=== PATIENT | male | born 1990 ===

== ENCOUNTER 2021-10-17 18:04 | Inpatient (IN) | payer OTHER ==
[~2021-10-17] VITALS: Ht 180.3 cm; Wt 77.4 kg
[2021-10-17 19:29] LABS: BASOPHILS ABSOLUTE AUTO 0.22 K/mm3 (0.00-0.23); BASOPHILS PERCENT AUTO 1 % (0-2); EOSINOPHILS ABSOLUTE AUTO 1.66 K/mm3 (0.00-0.68); EOSINOPHILS PERCENT AUTO 9 % (0-6); Hematocrit 48.6 % (37.0-53.0); IMMATURE GRAN ABSOLUTE AUTO 0.07 K/mm3 (0.00-0.10); IMMATURE GRAN PERCENT AUTO 0 % (0-1); LYMPHOCYTES ABSOLUTE AUTO 4.24 K/mm3 (0.84-5.20); LYMPHOCYTES PERCENT AUTO 24 % (21-46); MONOCYTES ABSOLUTE AUTO 1.46 K/mm3 (0.16-1.47); MONOCYTES PERCENT AUTO 8 % (4-13); Mean Corpuscular HGB 30.6 pg (26.0-34.0); Mean Corpuscular HGB Conc 32.9 g/dL (31.5-36.5); Mean Corpuscular Volume 93 fL (80-100); Mean Platelet Volume 10.2 fL (9.1-12.4); NEUTROPHILS ABSOLUTE AUTO 9.94 K/mm3 (1.96-9.15); NEUTROPHILS PERCENT AUTO 57 % (41-73); Platelet Count 369 K/mm3 (150-400); RDW Coefficient Variation 13.2 % (11.7-14.2); RDW Standard Deviation 45.2 fL (35.1-46.3); Red Blood Cell Count 5.23 M/mm3 (4.30-5.90); White Blood Cell Count 17.59 K/mm3 (4.00-11.30)
[2021-10-17 19:42] LABS: Albumin, Blood 3.9 g/dL (3.4-5.0); Albumin/Globulin Ratio 1.1 (0.8-1.8); Bilirubin, Total 0.3 mg/dL (0.1-1.0); Bun/Creatinine Ratio 14.4 (12.0-20.0); Calcium, Blood 8.3 mg/dL (8.5-10.1); Creatinine, Blood 0.83 mg/dL (0.60-1.20); Globulin, Blood 3.4 g/dL (2.2-4.0); Total Protein, Blood 7.3 g/dL (6.4-8.2)
[2021-10-17 19:52] LABS: PO2 Arterial 484 mmHg (80-100)
[2021-10-17 19:54] LABS: PCO2 Arterial 73 mmHg (35-45); pH Blood Arterial 7.16 (7.35-7.45)
--- NOTE | 2021-10-17 22:00 | NUR ---
EMERGENCY CONTACT PT'S PHONE REVIEWED WITH JOB LITHOGRAPHER GRACE MEDINA, IN CASE OF EMERGENCY MEDICAL INFORMATION IS NOT ENTERED, EMERGENCY CONTACTS IN PHONE ARE LISTED "MOTHER" [phone], "RAGHAVENDRA" [phone], AND "JIM" [phone] UNABLE TO OBTAIN MEDICAL HISTORY FROM PT DUE TO INTUBATION, DISCUSSED WITH VENUE COORDINATOR JUANJO ROBERTO REGARDING PT'S EMERGENCY PHONE CONTACTS, CALL IS PLACED TO NUMBER SAVED "MOTHER" IN PT'S PHONE BUT WENT TO VOICEMAIL, MESSAGE LEFT TO PLEASE RETURN CALL TO [facility] IN [facility] AT [phone].
[2021-10-17 22:02] LABS: Influenza A, PCR NEGATIVE (NEGATIVE); Influenza B, PCR NEGATIVE (NEGATIVE); Resp Syncytial Virus, PCR NEGATIVE (NEGATIVE); SARS-Cov-2 (COVID-19) PCR, MMC NEGATIVE (NEGATIVE)
[2021-10-17] MEDS ORDERED: ALBU90OI (22:46)
[2021-10-18 00:15] LABS: Source, Urine Foley catheter
[2021-10-18 00:29] LABS: U Amphetamine Screen Not Detected; U Barbituate Screen Not Detected; U Benzodiazapine Screen Not Detected; U Buprenorphine Screen Not Detected; U Cannabinoids Screen DETECTED; U Cocaine Screen DETECTED; U Methadone Screen Not Detected; U Methamphetamine Screen Not Detected; U Opiates Screen Not Detected; U Oxycodone Screen Not Detected; U Phencyclidine Screen Not Detected; U Propoxyphene Screen Not Detected
[2021-10-18 00:31] LABS: Bilirubin, Urine Neg (Neg); Blood, Urine 5+ (Neg); Color, Urine Brown (P-Yellow); Glucose Qualitative, Urine Neg (Neg); Ketones, Urine 1+ (Neg); Leukocyte Esterase, Urine 1+ (Neg); Nitrite, Urine Neg (Neg); Protein, Urine 3+ (Neg); Urobilinogen, Urine NORM (Normal)
[2021-10-18 00:32] LABS: Amorphous Heavy (0-Heavy); Appearance, Urine Turbid (Clear); Bacteria Few /hpf; Red Blood Cells, Urine TNTC /hpf (0-2); Squamous Epithelial Cells Not Seen /hpf (Few)
[2021-10-18 03:38] LABS: BASOPHILS ABSOLUTE AUTO 0.02 K/mm3 (0.00-0.23); BASOPHILS PERCENT AUTO 0 % (0-2); EOSINOPHILS ABSOLUTE AUTO 0.01 K/mm3 (0.00-0.68); EOSINOPHILS PERCENT AUTO 0 % (0-6); Hematocrit 42.4 % (37.0-53.0); Hemoglobin 14.4 g/dL (13.5-17.5); IMMATURE GRAN ABSOLUTE AUTO 0.04 K/mm3 (0.00-0.10); IMMATURE GRAN PERCENT AUTO 0 % (0-1); LYMPHOCYTES ABSOLUTE AUTO 0.28 K/mm3 (0.84-5.20); LYMPHOCYTES PERCENT AUTO 2 % (21-46); MONOCYTES ABSOLUTE AUTO 0.07 K/mm3 (0.16-1.47); MONOCYTES PERCENT AUTO 1 % (4-13); Mean Corpuscular HGB 30.6 pg (26.0-34.0); Mean Corpuscular Volume 90 fL (80-100); Mean Platelet Volume 10.2 fL (9.1-12.4); NEUTROPHILS ABSOLUTE AUTO 12.32 K/mm3 (1.96-9.15); NEUTROPHILS PERCENT AUTO 97 % (41-73); Platelet Count 256 K/mm3 (150-400); RDW Coefficient Variation 13.4 % (11.7-14.2); RDW Standard Deviation 44.3 fL (35.1-46.3); Red Blood Cell Count 4.71 M/mm3 (4.30-5.90); White Blood Cell Count 12.74 K/mm3 (4.00-11.30)
[2021-10-18 03:51] LABS: PCO2 Arterial 36.4 mmHg (35-45); PO2 Arterial 78.3 mmHg (80-100)
[2021-10-18 03:56] LABS: Albumin, Blood 3.5 g/dL (3.4-5.0); Albumin/Globulin Ratio 1.1 (0.8-1.8); Bilirubin, Total 0.5 mg/dL (0.1-1.0); Bun/Creatinine Ratio 14.6 (12.0-20.0); Calcium, Blood 8.4 mg/dL (8.5-10.1); Creatinine, Blood 0.75 mg/dL (0.60-1.20); Globulin, Blood 3.2 g/dL (2.2-4.0); Magnesium, Blood 1.8 mg/dL (1.6-2.4); Total Protein, Blood 6.7 g/dL (6.4-8.2)
--- NOTE | 2021-10-18 04:12 | NUR ---
FAMILY UPDATE CONTACT LISTED IN PT'S PHONE "MOTHER" RETURNED CALL AT THIS TIME, SHE STATES THAT SHE LIVES IN [place]. SHE DOES NOT BELIEVE THAT HE IS ALLERGIC TO ANYTHING OTHER THAN WHEAT, SHE REPORTS HIS ONLY MEDICAL HISTORY OTHER THAN ASTHMA KIDNEY STONES, SHE STATES THAT HE HAS NOT HAD ANY SURGERIES TO HER KNOWLEDGE, SHE DOES STATE THAT SPIRITUAL CARE IS IMPORTANT TO THE PT AND THAT HE WOULD PROBABLY LIKE A VISIT FROM SPIRITUAL CARE. HER NAME IS LEXIE, NUMBER FROM PT'S PHONE IS [phone]
--- NOTE | 2021-10-18 05:58 | NUR ---
PT REMAINS SEDATED AND INTUBATED, VENT SETTINGS WERE CHANGED BY RT FROM PRESSURE CONTROL TO AC/VC 10/470/50/30% AND WAS REVIEWED WITH DR ROBB AT THE TIME CHANGES WERE MADE. PT HAS TOLERATED WELL, LUNGS WERE DIMINISHED ON ARRIVAL TO ICU BUT HAVE IMPROVED TO CLEAR THROUGHOUT, SATS ARE LOW TO MID 90S AND RESP RATE IS LOW 20S WITH TIDAL VOLUMES LOW TO MID 500S. PT REMAINS TACHYCARDIC HOWEVER RATE HAS IMPROVED FROM 130S TO 120S, PRESSURES HAVE MAINTAINED, PULSES REMAIN FULL X 4 EXTREMITIES, SKIN PWD, TEMP IS NOTED TO HAVE INCREASED TO 100.2 OF THIS TIME, CALL WAS PLACED TO HOSPITALIST GROUND OPERATIONS SUPERINTENDENT REGARDING UA OBTAINED AFTER BALL PLACEMENT AND ROCEPHIN WAS ORDERED AND ADMINISTERED. PROPOFOL HAS BEEN TITRATED SLOWLY DOWN LOW 55 MCG/KG/MIN HOWEVER PT WAS NOTED TO BECOME QUITE AGITATED, COUGHING, GAGGING, AND SITTING UP/LEANING OVER BED RAIL AND HAS SINCE REQUIRED TITRATED BACK UP TO 75 MCG/KG/MIN, HE DID REQUIRE INTERMITTENT FENTANYL AND ATIVAN ADMINISTRATION AND TOLERATED WELL. OG IS IN PLACE TO LOW INTERMITTENT SUCTION, PRODUCTIVE OF CLEAR/BROWN GASTRIC CONTENTS, BOWEL TONES ARE HYPOACTIVE THROUGHOUT, ABD IS SOFT, NO GRIMACING NOTED WITH LIGHT PALPATION. TEMP PROBE BALL IN PLACE ON ARRIVAL FROM ER AND URINE WAS SENT PER PROTOCOL, LOW URINE OUTPUT WAS NOTED POST IVF BOLUS AND BLADDER SCAN WAS DONE SHOWING 181 ML OF URINE, NS 20 ML FLUSH WAS DONE USING SIDE PORT WITH DRAINAGE TUBING CLAMPED AND BALL DRAINED 270 ML OF TEA COLORED URINE WITH SEDIMENT WHICH CLEARED TO DARK STEVE URINE OF THIS TIME.
--- NOTE | 2021-10-18 06:51 | NUR ---
CALL RECEIVED FROM PT'S FATHER, NAME CATHLEEN, NUMBER [phone], STATES THAT HE IS ABLE TO GET UPDATES FROM LEXIE VIA PT'S BROTHER "RAGHAVENDRA"
--- NOTE | 2021-10-18 08:06 | NUR ---
AM NOTE... ASSUMED CARE OF PT AT 0700, THE PT IS INTUBATED AND SEDATED ON PROPOFOL AT 70MCG/KG, THE PT BECOMES AGITATED WITH ANY TYPE OF CARE OR PT REPOSITIOING. THE PT'S VENT SETTINGS ARE AC/VC+:10/470/5/30% WITH O2 SATS >90% L/S CLEAR T/O NO WHEEZES NOTED ON THIS ASSESSMENT. OG TUBE IS SET TO LIS BUT CLAMPED TO GIVE AM MEDS. BT PRESENT AND HYPERACTIVE, ABD IS SOFT AND NONTENDER TO PALPATION. THE PT IS IN SINUS TACH IN THE 120'S, BP IS SOFT BUT STABLE WITH MAPS >65 NO EDEMA IS NOTED ON ASSESSMENT. BALL IS PATENT AND DRAINING TO GRAVITY. WILL CONTINUE TO MONITOR.
--- NOTE | 2021-10-18 14:06 | NUR ---
PT UPDATE.... PT'S TUBE FEEDS WERE STARTED AT 1400, RATE WAS STARTED AT 25MLS/HR.
--- NOTE | 2021-10-18 14:25 | NUR ---
PT UPDATE... AT 1415 THE PT WOKE UP AND SAT FORWARD AND GRABBED HIS ET TUBE IN AN ATTEMPT TO SELF EXTUBATE. THE PT'S WRISTS WERE RESTRAINED WELL HOWEVER THE PT IS VERY STRONG AND FLEXABLE. THERE IS NO CHANGE TO THE PLACEMENT OF THE ET TUBE IT CONTINUES TO BE 25 AT THE TEETH. THE PT'S PROPOFOL WAS INCREASED BACK TO 70MCG/KG AND HE WAS GIVEN 1MG IV ATIVAN. THIS WORKED WELL TO RESEDATE THE PT. WILL CONTINUE TO MONITOR.
--- NOTE | 2021-10-18 17:10 | NUR ---
SHIFT SUMMARY... STARTING AT 1630 THE PT'S BPs STARTED TO TREND DOWN WITH MAPS <60, PROVIDER WAS NOTIFIED AND ORDERS WERE OBTAINED FOR 1 BOLUS OF LR AND IF BPs HAVE NOT IMPROVED AFTER THE BOLUS THEN TO START LEVOPHED. THE PT'S OTHER VS HAVE BEEN STABLE THE PT'S HR HAS IMPROVED TO SR IN THE 90'S. THE PT'S VENT SETTINGS WERE CHANGED TO PRESSURE SUPPORT OF 8/5 AND 30% WITH O2 SATS >90% L/S HAVE INCREASED WHEEZES T/O BUT MORE SO ON THE LEFT THAN THE RIGHT. THE PT'S TUBE FEEDS ARE RUNNING AT 25MLS/HR WITH A GOAL OF 45MLS/HR. THE PT'S BALL IS PATENT AND DRAINING STEVE URINE WITH BROWN SEDIMENT TO GRAVITY. THE PT HAS NOT HAD A BM THIS SHIFT. THE PT'S MOTHER LEXIE WHO IS HIS NEXT OF KIN HAS BEEN UPDATED SEVERAL TIMES T/O THIS SHIFT. WILL CONTINUE TO MONITOR UNTIL REPORT IS GIVEN TO ONCOMING RN.
--- NOTE | 2021-10-18 19:47 | NUR ---
ASSUMED CARE OF PT, BEDSIDE REPORT RECEIVED. PT IS NOTED ON SPONTANEOUS/PRESSURE SUPPORT ON VENTILATOR 8/5 FIO2 30% CURRENT TIDAL VOLUMES ARE HIGH 400S TO 500S, RATE IS HIGH TEENS LOW 20S AT THIS TIME, LUNGS ARE CLEAR BUT DIM THROUGHOUT, RT AT BEDSIDE FOR UDN, ETCO2 CIRCUIT REPLACED BY RT SECONDARY TO LACK OF WAVEFORM, ETCO2 IS 33-36 AT THIS TIME, SATS MAINTAINING MID TO UPPER 90S. CONTINUES IN SINUS RHYTHM, RATE NOTED IMPROVED FROM THIS AM AT SHIFT CHANGE, CURRENTLY HIGH 90S, PRESSURES ARE REPORTED TO HAVE BEEN SOFT FOR A DURATION TODAY HOWEVER HAVE IMPROVED FOLLOWING LR BOLUS, PULSES CONTINUE FULL, SKIN REMAINS PWD, NO EDEMA NOTED. ACTIVE BOWEL TONES X 4, SOFT, NO GRIMACING WITH PALPATION, TUBE FEEDING STARTED AT 1400 TODAY, VITAL HIGH PROTEIN TO OG TUBE AT 25 ML/HR WITH 30 ML WATER EVERY 4 HOURS FOR FLUSH, CURRENT RESIDUAL IS 20 ML, WILL MONITOR. TEMP PROBE BALL REMAINS IN PLACE URINE IN TUBING IS CLEAR YELLOW WITH FLECKS OF DARK RED/BROWN SEDIMENT. EXTENDED DWELL IV IS NOW NOTED TO RIGHT UPPER ARM, DRESSING CDI, INFUSING PROPOFOL AT 70 MCG/KG/MIN AT THIS TIME. BILAT AC IV ACCESS CONTINUES AND ARE SALINE LOCKED. PT DOES NOT FOLLOW COMMANDS AT THIS TIME BUT IS NOTED TO GRIMACE, SIT UP AND REACH FOR ETT, AND TURN HEAD SIDE TO SIDE FOLLOWING NOXIOUS STIMULI, REASSURANCE PROVIDED REGARDING PT SAFETY, WRIST RESTRAINT PURPOSE, PLAN OF CARE FOR THIS SHIFT ARE PROVIDED TO PT, IMPROVEMENT IN RESTLESSNESS IS NOTED HOWEVER PT CONTINUES WITH GRIMACE, COUGH, AND INCREASED MUSCLE TENSION, FENTANYL 50 MCG IV ADMINISTERED PER ORDERS. WILL MONITOR.
--- NOTE | 2021-10-18 21:19 | NUR ---
PT UPDATE SPOKE WITH DR ZAVALA REGARDING PT'S PRESSURES, PROPOFOL RATE, AND SEDATION. ORDERS OBTAINED FOR PRECEDEX GTT. PLAN IS TO TITRATE PROPOFOL DOWN AND MAINTAIN SEDATION WITH PRECEDEX. IF PRESSURES DON'T IMPROVE WITH THESE INTERVENTIONS, THEN WILL START LEVOPHED PERIPHERALLY.
--- NOTE | 2021-10-18 22:02 | NUR ---
TUBE FEEDING RATE INCREASED TO 35 ML/HR, WILL CONT TO MONITOR.
--- NOTE | 2021-10-18 22:17 | NUR ---
SEDATION UPDATE PT IS NOTED WITH INCREASED GRIMACING AND GAGGING WITH SLIGHT REPOSITIONING, OPENS EYES WHEN INSTRUCTED, FOLLOWS INSTRUCTIONS AT THIS TIME BUT DOES NOT ANSWER YES/NO QUESTIONS. WILL CONT TO MONITOR.
[2021-10-19 03:45] LABS: Hematocrit 41.1 % (37.0-53.0); Hemoglobin 13.7 g/dL (13.5-17.5); Mean Corpuscular HGB 30.6 pg (26.0-34.0); Mean Corpuscular HGB Conc 33.3 g/dL (31.5-36.5); Mean Corpuscular Volume 92 fL (80-100); Mean Platelet Volume 10.6 fL (9.1-12.4); Platelet Count 238 K/mm3 (150-400); RDW Coefficient Variation 13.8 % (11.7-14.2); RDW Standard Deviation 46.9 fL (35.1-46.3); Red Blood Cell Count 4.48 M/mm3 (4.30-5.90); White Blood Cell Count 11.45 K/mm3 (4.00-11.30)
[2021-10-19 04:02] LABS: Bun/Creatinine Ratio 13.8 (12.0-20.0); Calcium, Blood 8.5 mg/dL (8.5-10.1); Creatinine, Blood 0.8 mg/dL (0.60-1.20); Potassium, Blood 4.4 mmol/L (3.5-5.5)
--- NOTE | 2021-10-19 07:22 | NUR ---
PT RESTS QUIETLY THROUGHOUT SHIFT, MENTATION WAS NOTED TO IMPROVE TO FOLLOWING COMMANDS AND BEING CALM/COOPERATIVE WITH CARE AND INCREASES IN STIMULATION. PRECEDEX WAS ADDED AND PROPOFOL WAS TITRATED DOWN TO STANDBY FOR A SHORT DURATION. PT DID C/O PAIN TO THROAT AND NODDED YES WHEN ASKED IF HE WOULD LIKE PAIN MEDICATION FOR WHICH FENTANYL WAS ADMINISTERED. RESP RATE WAS THEN NOTED TO DECREASE TO LESS THAN 10/MIN, VENTILATOR WAS RETURNED TO AC/VC MODE BY RT AND PT TOLERATED WELL, AT THAT TIME PROPOFOL WAS RESTARTED INFUSING AT 25 MCG/KG/MIN AND PT WAS NOTED TO APPEAR TO SLEEP, ROUSED EASILY TO VERBAL STIMULI AND CONTINUED TO FOLLOW COMMANDS AND ANSWER YES/NO QUESTIONS. PRESSURES WERE NOTED TO IMPROVE WITH DECREASE IN PROPOFOL RATE. TUBE FEEDING RATE WAS INCREASED TO 35 ML/HR AT 2200, MIDNOC RESIDUAL INCREASED TO 40 ML HOWEVER 0400 RESIDUAL WAS 400 ML 200 OF WHICH WAS REINSTILLED AND TUBE FEEDING WAS PLACED TO STANDBY FOR 2 HOURS AND RESTARTED AT 15 ML/HR. URINE COLOR HAS IMPROVED, GOOD OUTPUT IN BALL THIS SHIFT.
--- NOTE | 2021-10-19 07:37 | NUR ---
PT ON VENTILATOR, SPNT 8, FIO2 30%, PEEP 5. RESP RATE 12-13, SATS 92%. PT ON PROPOFOL 40MCG/KG, PRECEDEX @ 0.6MCG/KG, PT WITH SIZE 2 PUPILS, REACTIVE, NO EYELASH REFLEX, PROPOFOL DECREASED TO 30MCG/KG. OG WITH VHP @ 15ML/HR, BOWEL SOUNDS QUIET, BALL TO GRAVITY DRAINAGE WITH YELLOW IN TUBING WITH FLECKS OF RED, SKIN DIAPHORETIC, LUNGS CLEAR WITH SMALL SQUEAK ON INSP IN ANTERIOR. WILL REASSESS PROPOFOL LESSENS.
--- NOTE | 2021-10-19 09:20 | NUR ---
SPOKE TO PATIENT, NODDED HEAD IN UNDERSTANDING.
--- NOTE | 2021-10-19 09:57 | NUR ---
0947, PT AWAKENS TO VOICE, FOLLOWS COMMANDS, RONNI R/T SUCTIONS AND PT IS EXTUBATED TO ROOM AIR. GOOD MOIST COUGH, SATS HANGING IN THE HI 80'S, AFTER A FEW MOMENTS PLACED ON 2L/NC WITH SATS TO 91%. PT STILL A BIT SLEEPY, WAKES UP TO VOICE, SAYS HE "FEELS BETTER". RESTRAINTS DC'D.
--- NOTE | 2021-10-19 14:57 | NUR ---
MAKAYLA WAS UP TO THE SHOWER, SPENT A GOOD DEAL OF TIME IN THERE. HE SAID IT FELT GREAT AND SO DOES HE. HE RETURNS TO HIS ROOM, TO THE RECLINER, THEN A BREATHING TREATMENT FOR HIS WHEEZING. HE DENIES ANY COMPLAINTS AT THIS TIME.
--- NOTE | 2021-10-19 15:57 | NUR ---
PT HAS BEEN UP AND AMBULATING IN THE ROOM, SPOT CHECK OF SPO2, 94% ON ROOM AIR. REPORT GIVEN TO NURSE ON MEDICAL FLOOR. PT AMBULATING WITH [facility].
--- NOTE | 2021-10-19 16:36 | NUR ---
TRANSFER FROM ICU 1545: RECEIVED REPORT FROM REYNALDO GROUT MACHINE TENDER. 1605: RECEIVED PT TO [facility] FLOOR, ROOM 355. PLACED IN BED MADE COMFORTABLE, ORIENTED TO ROOM & UNIT ROUTINE. VSS. PT A&O X 4. DOCUMENT ANALYST WILL WALK PT TO HIS VEHICLE SO HE CAN GET HIS WORK LAPTOP. PT SATTING WELL ON RA. PT WITH NO COMPLAINTS AT THIS TIME.
--- NOTE | 2021-10-19 18:31 | NUR ---
SHIFT SUMMARY PT A&O X 4. VSS. PT REQUESTED A BEER WITH DINNER, IS USED TO DRINKING A 6 PK A DAY AND HE REQUESTED A NICOTINE PATCH, IS USED TO SMOKING A PK A DAY. PLACED CALL TO DR. LOMBARDI AND ORDERS RECEIVED. PT DENIES DYSPNEA AND BREATHING IS EVEN & UNLABORED. ON RA AND SATTING >90%. IS INDEPENDENT IN THE ROOM. GAIT STRONG & STEADY. PLAN IS FOR DC HOME TOMORROW.
[2021-10-20 05:17] LABS: BASOPHILS ABSOLUTE AUTO 0.01 K/mm3 (0.00-0.23); BASOPHILS PERCENT AUTO 0 % (0-2); EOSINOPHILS PERCENT AUTO 0 % (0-6); Hematocrit 42.6 % (37.0-53.0); Hemoglobin 13.8 g/dL (13.5-17.5); IMMATURE GRAN ABSOLUTE AUTO 0.04 K/mm3 (0.00-0.10); IMMATURE GRAN PERCENT AUTO 0 % (0-1); LYMPHOCYTES ABSOLUTE AUTO 0.71 K/mm3 (0.84-5.20); LYMPHOCYTES PERCENT AUTO 8 % (21-46); MONOCYTES PERCENT AUTO 7 % (4-13); Mean Corpuscular HGB Conc 32.4 g/dL (31.5-36.5); Mean Corpuscular Volume 93 fL (80-100); Mean Platelet Volume 10.9 fL (9.1-12.4); NEUTROPHILS ABSOLUTE AUTO 7.63 K/mm3 (1.96-9.15); NEUTROPHILS PERCENT AUTO 85 % (41-73); Platelet Count 281 K/mm3 (150-400); RDW Coefficient Variation 13.6 % (11.7-14.2); RDW Standard Deviation 46.4 fL (35.1-46.3); White Blood Cell Count 8.99 K/mm3 (4.00-11.30)
--- NOTE | 2021-10-20 06:18 | NUR ---
PAPER MAKER SUMMARY ADMITTED FOR ACUTE RESPIRATORY FAILURE. PT IS FULL CODE. POSSIBLE DC HOME TODAY. HE REPORTS NO PAIN EXCEPT A SORE THROAT FROM THE INTUBATION. PT IS ALERT AND ORIENTED AND HAS BEEN INDEPENDENT TO THE BR. HE HAS BEEN USING LOZENGES TO HELP HIS THROAT ALONG WITH HOT TEA AND COFFEE WITH SATISFACTORY IMPROVEMENT.
[2021-10-20] MEDS ORDERED: ALBU90OI INH (09:10)
[2021-10-20] MEDS ORDERED: CEPACOL LOZENGE MT (09:25)
[2021-10-20] MEDS ORDERED: PRED20 PO (09:26)
[2021-10-20] MEDS ORDERED: FLUTICASONE-SA1 EAC2 INH (09:26)
--- NOTE | 2021-10-20 11:15 | NUR ---
DC HOME PT DC'D HOME. DC INSTRUCTIONS GIVEN TO PT WITH GOOD UNDERSTANDING. SCRIPTS FAXED TO [facility] ([place]) PER PT REQUEST. POWER GLIDE & PIV DC'D WITH CATH TIPS INTACT. NO REDNESS OR SWELLING NOTED AT SITES. PT HOME WITH ALL PERSONAL BELONGINGS.
== END 2021-10-20 11:09 | disposition home or self-care (01) | DRG 208 ==
LOC: ER 18:04 → MEDS 20:42 → ICUW 20:42 → MEDS 10-19 15:58
PROVIDERS: Internal Medicine Critical Care Medicine; Student in an Organized Health Care Education/Training Program; ADMIT Internal Medicine
PROC: 0BH18EZ Insertion of Endotracheal Airway into Trachea, Via Natural or Artificial Opening Endoscopic (ICD-10-PCS; principal; 2021-10-17)
PROC: 5A1945Z Respiratory Ventilation, 24-96 Consecutive Hours (ICD-10-PCS; 2021-10-17)
DX: J96.01 Acute respiratory failure with hypoxia (principal); J45.902 Unspecified asthma with status asthmaticus; R31.9 Hematuria, unspecified; Z20.822 Contact with and (suspected) exposure to COVID-19; F12.90 Cannabis use, unspecified, uncomplicated; F14.90 Cocaine use, unspecified, uncomplicated; F17.200 Nicotine dependence, unspecified, uncomplicated; Z71.51 Drug abuse counseling and surveillance of drug abuser; Z88.8 Allergy status to other drugs, medicaments and biological substances
CPT/HCPCS: 0241U; 31500; 36415; 36600; 51702; 71045; 80048; 80053; 81001; 82803; 83735; 85025; 85027; 87086; 93005; 93010; 94002; 94003; 94640; 94644; 94645; 94660; 94664; 94760; 94762; 96365-59; 96375-59; 96376-59; 99291-25; A9270; C1751; C9113; J0330; J0696; J1650; J2060; J2704; J2930; J3010; J3475; J7030; J7050; J7120; J7512